=== PATIENT | male | born 1985 | race Asian ===

== ENCOUNTER 2017-02-24 12:24 | Outpatient (CLI) | payer OTHER ==
[2017-02-24 13:18] LABS: CREATININE 1.4 MG/DL (0.55-1.30); GLOMERULAR FILTRATION RATE 59.9 mL/min (>60)
--- NOTE | 2017-02-24 15:42 | Diagnostic Imaging Report ---
Indication: Pancreatitis. Elevated amylase lipase. Technique: Continuous helical transaxial imaging of the abdomen was obtained from the lung bases to the iliac crests during intravenous contrast administration. Coronal 2-D reformats were also obtained. Study obtained in a Siemens sensation [address] Total Dose length Product (DLP): [address] Dose Index Volume (CTDIvol): 0.15, 8.11, 113.56, 13.52, 13.5 2 mGy Comparison: None Findings: The pancreas appears normal with well-defined margins. No infiltration of the peripancreatic fat demonstrated. There is no parenchymal calcification, peripancreatic fluid, pseudocyst or inflammation identified. There is no biliary ductal dilatation. Gallbladder is unremarkable. The liver and spleen are unremarkable. The lung bases appear clear. Kidneys show no abnormalities. There is no adrenal mass. There is no free fluid. Impression: Negative contrast CT of abdomen Findings conveyed and discussed with Dr. Peterson. The CT scanner at [facility] is accredited by the [employer] and the scans are performed using protocols designed to limit radiation exposure to as low as reasonably achievable to attain images of sufficient resolution adequate for diagnostic evaluation.
== END 2017-02-24 14:24 | disposition home or self-care (01) ==
LOC: CAT 12:24
DX: R10.9 Unspecified abdominal pain (principal)
CPT/HCPCS: 36415; 74160; 82150; 82565; 83690; 84520; Q9967

== ENCOUNTER 2017-03-22 12:00 | Outpatient (CLI) | payer OTHER ==
--- NOTE | 2017-03-22 16:24 | Diagnostic Imaging Report ---
Indication: Abdominal pain, nausea Technique: Munoz-scale and duplex images of the upper abdomen were obtained Comparison: Abdomen pelvis CT 02/24/2017 Findings: Gallbladder is nondistended. No gallstones are demonstrated. Gallbladder wall measures 4 mm thick, but this is probably artifact of under distention. No pericholecystic fluid. Sonographic Dubon's sign is negative. Common bile duct measures 3 mm in diameter. No intrahepatic biliary ductal dilatation. Liver demonstrates normal echogenicity, no focal abnormality. Portal vein and hepatic veins are patent. Pancreas is unremarkable. Spleen is unremarkable. Left kidney measures 11.4 cm in length. Right kidney measures 12.1 cm length. Both kidneys demonstrate normal echogenicity. There is no hydronephrosis. No focal abnormality . Non-aneurysmal abdominal aorta . Impression: Negative
== END 2017-03-22 14:00 | disposition home or self-care (01) ==
LOC: ULS 12:00
DX: R10.9 Unspecified abdominal pain (principal)
CPT/HCPCS: 76700